=== PATIENT | female | born 2000 | race Hispanic/Latino ===

== ENCOUNTER 2023-02-22 12:30 | Emergency (ER) | payer OTHER, SELFPAY ==
[2023-02-22 12:50] VITALS: BP 107/66; PULSE 72; RESP 16; TEMP 36.9; O2SAT 100
--- NOTE | 2023-02-22 13:09 | ED.SKABFB ---
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 C/o itching and pain. All systems reviewed and negative except as noted above. Related Data Allergies Allergy/AdvReac Type Severity Reaction Status Date / Time No Known Allergies Allergy Verified 02/22/23 13:00 Review of Systems Review of Systems: CONSTITUTIONAL: Denies fever, chills, or sweats. EYES: Denies visual changes, redness, or discharge. ENT: Denies rhinorrhea, congestion, sore throat, or otalgia. CARDIOVASCULAR: Denies chest pain, palpitations, or edema. RESPIRATORY: Denies cough or dyspnea. GASTROINTESTINAL: Denies abdominal pain, nausea, vomiting, or diarrhea. GENITOURINARY: Denies dysuria or hematuria. SKIN: Reports itchy, painful rash MUSCULOSKELETAL: Denies back pain, joint pain, or myalgia. NEUROLOGIC: Denies headache, numbness, or weakness. PSYCHIATRIC: Denies anxiety or depression. All other systems reviewed are negative, except as documented in HPI. PMFSH Comments At time of signature, agree with nursing past medical, surgical, social and family history. There is no relevant family history pertinent to the presenting complaint. Exam Narrative: GENERAL: This is a well-nourished, well-developed patient, in no apparent distress. HEAD: normocephalic, atraumatic. EYES: PERRL. Sclera clear/white. Vision is grossly intact. EARS: External ears normal NOSE: External nose normal NECK: Neck supple, non-tender without lymphadenopathy, masses or thyromegaly. CARDIOVASCULAR: Regular rate and rhythm without murmurs, gallops, or rubs. RESPIRATORY: Clear to auscultation. Breath sounds equal bilaterally. No wheezes, rales, or rhonchi. SKIN: warm, Dry, intact, good texture and turgor. scabbed vesicular rash to L inner thigh. approx. 8 to 9 lesions. NEURO: awake, alert, and oriented to person, place and time. There were no obvious focal neurologic abnormalities. EXTREMITIES: No joint tenderness, effusion, or edema noted. Course Course Level of Care: Express Care Visit Vital Signs Vital signs: Vital Signs Temperature 36.9 C 02/22/23 12:50 Pulse Rate 72 02/22/23 12:50 Respiratory Rate 16 02/22/23 12:50 Blood Pressure 107/66 02/22/23 12:50 Pulse Oximetry 100 02/22/23 12:50 Oxygen Delivery Room Air 02/22/23 12:50 Temperature 36.9 C 02/22/23 12:50 Pulse Rate 72 02/22/23 12:50 Respiratory Rate 16 02/22/23 12:50 Blood Pressure 107/66 02/22/23 12:50 Pulse Oximetry 100 02/22/23 12:50 Oxygen Delivery Room Air 02/22/23 12:50 reviewed MDM - Skin/Abscess/Foreign Bdy MDM Narrative Medical decision making narrative: Patient is aware of diagnosis, understands and agrees to treatment plan. Anticipatory guidance given. Patient agrees to follow-up as directed and is aware of reasons to seek care at the emergency department. Portions of this record may have been created with voice recognition software Discharge Plan Discharge Clinical Impression: Shingles Patient Disposition: Home, Self-Care Condition: Stable Instructions: Shingles (ED) Additional Instructions: The rash to your left thigh is shingles. This is a virus. Take Tylenol or ibuprofen as needed for pain. Take medications as prescribed. See your doctor if not improving. Prescriptions: New hydroxyzine HCl 10 mg tablet 10 mg PO Q6-8H PRN (Reason: itching) Qty: 30 0RF lidocaine 5 % ointment 1 applic topical QID PRN (Reason: pain) Qty: 30 0RF Rx Instructions: apply sparingly to shingles rash Follow-up/Referrals: [facility],Healthcare [Primary Care Provider] - Time of Disposition: 13:21
== END 2023-02-22 13:29 | disposition home or self-care (01) ==
PROVIDERS: Emergency Provider Nurse Practitioner Family
DX: B02.9 Zoster without complications (principal)
CPT/HCPCS: 99203; G0463